=== PATIENT | male | born 1995 | race African-American/Black ===

== ENCOUNTER 2019-02-21 16:20 | Emergency (ER) | payer MEDICAID, OTHER ==
[~2019-02-21] VITALS: Ht 185.4 cm; Wt 59.0 kg
[2019-02-21] MEDS ORDERED: PROMETHAZINE HCL 25 MG/ML 1ML ONE (16:42)
[2019-02-21] MEDS ORDERED: HYDROmorphone HCL 2 MG/ML VL ONE (16:43)
[2019-02-21] MEDS ORDERED: PROMETHAZINE HCL 25 MG/ML 1ML IV ONE (16:45)
[2019-02-21] MEDS ORDERED: HYDROmorphone HCL 2 MG/ML VL IV ONE (16:45)
[2019-02-21] MEDS ORDERED: KETAMINE HCL 1 ML ONE (16:48)
[2019-02-21] MEDS ORDERED: NALOXONE HCL 0.4 MG/ML VIAL ONE (16:59)
[2019-02-21] MEDS ORDERED: NALOXONE HCL 0.4 MG/ML VIAL IV ONE (17:30)
[2019-02-21 17:55] VITALS: BP 117/62
[2019-02-28] MEDS ORDERED: KETAMINE 50mg/ML 10ml Vial (200mg/10ml) IV ONE (13:45)
== END 2019-02-21 18:29 | disposition home or self-care (01) ==
LOC: ER 16:20
DX: S53.105A Unspecified dislocation of left ulnohumeral joint, initial encounter (principal); X58.XXXA Exposure to other specified factors, initial encounter; Y93.67 Activity, basketball; Y92.89 Other specified places as the place of occurrence of the external cause; Y99.8 Other external cause status
CPT/HCPCS: 24600; 73070; 73080; 96374; 96375; 99285; J1170; J2310; J2550

== ENCOUNTER 2020-10-02 16:45 | Emergency (ER) | payer MEDICAID ==
[~2020-10-02] VITALS: Ht 188 cm; Wt 61.2 kg
[2020-10-02 17:25] LABS: Basophils # (auto) 0 10 ^3/uL (0-0.2); Basophils % (auto) 0.7 % (0.0-2.0); Eosinophils # (auto) 0.1 10 ^3/uL (0-0.8); Hematocrit 45.5 % (41.0-53.0); Hemoglobin 15.3 g/dL (13.5-17.5); Lymphocytes # (auto) 1.8 10 ^3/uL (0.4-5.4); Lymphocytes % (auto) 36.5 % (10.0-50.0); Mean Corpuscular Hemoglobin 32.3 pg (28.0-32.0); Mean Corpuscular Hgb Conc. 33.5 g/dL (32.0-36.0); Mean Corpuscular Volume 96.4 fL (80.0-100.0); Monocytes # (auto) 0.5 10 ^3/uL (0-1.3); Monocytes % (auto) 10.3 % (0.0-12.0); Neutrophils # (auto) 2.6 10 ^3/uL (1.6-8.6); Neutrophils % (auto) 51.5 % (37.0-80.0); Nucleated Red Blood Cells % 0.1 %; Platelet Count (auto) 206 10^3/uL (140-450); Red Blood Cells 4.72 10^6/uL (4.5-5.90); Red Cell Distribution Width 13.7 % (11.8-14.3); White Blood Cell 5.1 10^3/uL (4.4-10.8)
[2020-10-02 17:43] LABS: Albumin 4.1 g/dL (3.4-5.0); Calcium 8.9 mg/dL (8.5-10.1); Potassium 3.6 mmol/L (3.5-5.1)
[2020-10-02 17:48] LABS: BUN/Creatinine Ratio 13.7; Total Protein 7.9 g/dL (6.4-8.2)
[2020-10-02] MEDS ORDERED: ONDANSETRON HCL 4 MG/2 ML VIAL IV ONE (20:30)
[2020-10-02] MEDS ORDERED: SODIUM CHLORIDE 0.9% 1,000 ML IV ONE (20:30)
[2020-10-02 23:30] VITALS: BP 119/73
== END 2020-10-03 00:20 | disposition home or self-care (01) ==
LOC: ER 16:45
DX: T67.5XXA Heat exhaustion, unspecified, initial encounter (principal); R55 Syncope and collapse; R11.2 Nausea with vomiting, unspecified; M54.2 Cervicalgia; Z88.2 Allergy status to sulfonamides; X58.XXXA Exposure to other specified factors, initial encounter; Y93.89 Activity, other specified; Y92.89 Other specified places as the place of occurrence of the external cause; Y99.8 Other external cause status
CPT/HCPCS: 36415; 70450; 80053; 82550; 83605; 85025; 93005